=== PATIENT | female | born 1945 | race Caucasian/White ===

== ENCOUNTER 2020-05-24 11:16 | Emergency (ER) | payer MEDICARE ==
[~2020-05-24] VITALS: Ht 160 cm; Wt 61.0 kg
[~2020-05-24 11:16] MED LIST: ACETAMIN500 M1 PO; ALENDRONATE SOD70 MG PO; ALENDRONATE70 MG PO; ESTRACE VAG0.1 MG/GM VA; FISH OIL1 CAP PO; FLEXERIL OR; FLUARIX QUADRIV1 IN1 IM; FOSAMAX70 MG PO; KENALOG-4040 MG/ML IA; KENALOG-4040 MG/ML IC; NAPROSYN500 MG PO; OS-CAL 500500 M1 PO; PNEUMOVAX 23 IM; PREVNAR 13 IM; RESTASIS0.05 % OP; VITAMIN D2000 UNI1 PO; VITAMIN D32000 UNIT PO
[2020-05-24 14:35] VITALS: BP 136/65
== END 2020-05-24 14:52 | disposition home or self-care (01) ==
LOC: ED 11:16
PROC: 2W3JX1Z Immobilization of Right Finger using Splint (ICD-10-PCS; principal; 2020-05-24)
DX: S69.91XA Unspecified injury of right wrist, hand and finger(s), initial encounter (principal); W22.8XXA Striking against or struck by other objects, initial encounter; Y93.89 Activity, other specified; Y92.009 Unspecified place in unspecified non-institutional (private) residence as the place of occurrence of the external cause

== ENCOUNTER 2020-09-24 08:26 | Day surgery (SDC) | payer MEDICARE ==
[~2020-09-24] VITALS: Ht 160 cm; Wt 61.2 kg
[~2020-09-24 08:26] MED LIST changes: +BENADRYL 25MG C25 MG PO; +CALTRATE 600+D31 TAB PO; +FERRAPLUS 90 PO; +MOTRIN200 MG PO; -OS-CAL 500500 M1 PO; +TUMS500 MG PO; +TYLENOL 8 HOUR650 MG PO; +VOLTAREN1%GEL TOP
[2020-09-24] MEDS ORDERED: PERCOCET 5/325M1 TAB PO (11:00)
[2020-09-24 12:56] VITALS: BP 104/53
== END 2020-09-24 12:35 | disposition home or self-care (01) ==
LOC: ORM 08:26
PROVIDERS: ATTEND Surgery
PROC: 0FT44ZZ Resection of Gallbladder, Percutaneous Endoscopic Approach (ICD-10-PCS; principal; 2020-09-24)
DX: K80.10 Calculus of gallbladder with chronic cholecystitis without obstruction (principal); D13.5 Benign neoplasm of extrahepatic bile ducts; K57.30 Diverticulosis of large intestine without perforation or abscess without bleeding
CPT/HCPCS: J0131; J2710

== ENCOUNTER 2023-07-03 09:02 | Day surgery (SDC) | payer MEDICARE ==
[~2023-07-03] VITALS: Ht 160 cm; Wt 59.9 kg
[~2023-07-03 09:02] MED LIST changes: +DICYCLOMINE HCL20 MG PO; +IBGARD90 MG PO; +PERCOCET 5/325M1 TAB PO; +PROBIOTI3 PO; +PROLIA60 MG/ML SC; +TYLENOL PM PO
[2023-07-03] MEDS ORDERED: FAMOTIDINE 10MG/ML 2ML SDV IV ONE (09:21)
[2023-07-03] MEDS ORDERED: LACTATED RINGER'S 1,000 ML IV ONE (09:21)
[2023-07-03 10:56] VITALS: BP 132/69
[2023-07-03] MEDS ORDERED: GLYCOPYRROLATE 0.2 MG/ML IV ONE (14:23)
[2023-07-03] MEDS ORDERED: PROPOFOL 200 MG/20 ML VIAL IV ONE (14:23)
[2023-07-03] MEDS ORDERED: LIDOCAINE HCL 2% 2ML SDV IV ONE (14:23)
== END 2023-07-03 11:14 | disposition home or self-care (01) ==
LOC: ORM 09:02
PROVIDERS: ATTEND Internal Medicine Gastroenterology
PROC: 0DB48ZX Excision of Esophagogastric Junction, Via Natural or Artificial Opening Endoscopic, Diagnostic (ICD-10-PCS; principal; 2023-07-03)
PROC: 0DB78ZX Excision of Stomach, Pylorus, Via Natural or Artificial Opening Endoscopic, Diagnostic (ICD-10-PCS; 2023-07-03)
DX: K29.50 Unspecified chronic gastritis without bleeding (principal); K44.9 Diaphragmatic hernia without obstruction or gangrene; K22.70 Barrett's esophagus without dysplasia; K31.7 Polyp of stomach and duodenum; K58.2 Mixed irritable bowel syndrome

== ENCOUNTER 2024-07-11 06:43 | Day surgery (SDC) | payer MEDICARE ==
[~2024-07-11] VITALS: Ht 160 cm; Wt 54.4 kg
[~2024-07-11 06:43] MED LIST changes: +ACETAMINOPHEN325 MG PO; +OMEPRAZOLE DR40 MG PO; +OS-CAL 500500 M1 PO; +PROBIOTIC PO
[2024-07-11] MEDS ORDERED: FAMOTIDINE 10MG/ML 2ML SDV IV ONE (06:56)
[2024-07-11] MEDS ORDERED: SODIUM CHLORIDE 0.9% 1,000 ML IV ONE (06:57)
[2024-07-11 09:08] VITALS: BP 107/64
[2024-07-11] MEDS ORDERED: PROPOFOL 200 MG/20 ML VIAL IV ONE (12:08)
[2024-07-11] MEDS ORDERED: LIDOCAINE HCL 2% 2ML SDV IV ONE (12:08)
[2024-07-11] MEDS ORDERED: GLYCOPYRROLATE 0.2 MG/ML IV ONE (12:08)
== END 2024-07-11 09:23 | disposition home or self-care (01) ==
LOC: ENDO 06:43 → ORM 10:50
PROVIDERS: ATTEND Surgery
PROC: 0DJD8ZZ Inspection of Lower Intestinal Tract, Via Natural or Artificial Opening Endoscopic (ICD-10-PCS; principal; 2024-07-11)
PROC: 0DB48ZX Excision of Esophagogastric Junction, Via Natural or Artificial Opening Endoscopic, Diagnostic (ICD-10-PCS; 2024-07-11)
PROC: 0DB78ZX Excision of Stomach, Pylorus, Via Natural or Artificial Opening Endoscopic, Diagnostic (ICD-10-PCS; 2024-07-11)
PROC: 0DB18ZX Excision of Upper Esophagus, Via Natural or Artificial Opening Endoscopic, Diagnostic (ICD-10-PCS; 2024-07-11)
DX: K22.70 Barrett's esophagus without dysplasia (principal); K31.7 Polyp of stomach and duodenum; K57.30 Diverticulosis of large intestine without perforation or abscess without bleeding; K64.8 Other hemorrhoids; K21.9 Gastro-esophageal reflux disease without esophagitis
CPT/HCPCS: J1596